=== PATIENT | female | born 1995 | race Caucasian/White ===

== ENCOUNTER 2021-04-24 19:34 | Outpatient (REF) | payer OTHER, MEDICAID, SELFPAY ==
--- NOTE | ~2021-04-24 | MR_ITS ---
MRI OF THE BRAIN WITHOUT IV CONTRAST INDICATION: Migraine headache. COMPARISON: CT head 02/25/2011. TECHNIQUE: Multiplanar multisequence MR imaging of the brain was obtained without IV contrast. FINDINGS: There is no hydrocephalus, extra-axial surface collection, or herniation. There is mild chronic microangiopathy. The major flow voids at the skull base are preserved. There is no acute infarct on diffusion-weighted imaging. There is no intracranial hemorrhage on the gradient recalled echo acquisition. The midline structures are normal. The cerebellar tonsils are normally positioned. The cerebellum and brainstem are normal. The craniocervical junction is normal. Osseous marrow signal intensity is homogenous. The visualized soft tissues are unremarkable. The right frontal sinus is completely opacified. There is mild mucosal thickening within the ethmoid air cells bilaterally. MR/MR head/brain wo con IMPRESSION: - No acute intracranial findings. - Mild chronic microangiopathy. - The right frontal sinus is completely opacified.
== END 2021-04-24 19:35 | disposition home or self-care (01) ==
LOC: HO.MRI 19:34
PROVIDERS: PCP Internal Medicine; Visit Provider Psychiatry & Neurology Neurology
DX: G43.909 Migraine, unspecified, not intractable, without status migrainosus (principal)
CPT/HCPCS: 70551

== ENCOUNTER 2023-01-14 11:52 | Outpatient (REF) | payer OTHER, SELFPAY ==
--- NOTE | ~2023-01-14 | XR_ITS ---
EXAMINATION: XR LUMBOSACRAL SPINE WITH OBLIQUES CLINICAL INFORMATION: Acute lower back pain with right sciatica. COMPARISON: None available. TECHNIQUE: AP, both oblique, and lateral views of the lumbar spine. Lateral view of the lumbosacral junction. FINDINGS: Vertebral body heights are normal. There is a slight thoracolumbar dextroscoliosis, which may be positional. At L5-S1, there is a 3 mm retrolisthesis. The remaining lumbar disc spaces are well-maintained. No acute fracture or spondylolisthesis is seen. There is multi-level minimal lumbar spondylosis. The posterior elements are intact. The paravertebral soft tissues are unremarkable. XR/XR lumbar spine 4V min IMPRESSION: 1. There is very mild degenerative disc disease at L5-S1. 2. There is multi-level minimal lumbar anterior spondylosis. 3. There is a slight thoracolumbar dextroscoliosis, which may be positional.
== END 2023-01-14 11:53 | disposition home or self-care (01) ==
LOC: HO.XRAY 11:52
PROVIDERS: PCP Internal Medicine; Visit Provider Internal Medicine
DX: M54.41 Lumbago with sciatica, right side (principal)
CPT/HCPCS: 72110

== ENCOUNTER 2023-05-13 14:18 | Emergency (ER) | payer OTHER, MEDICAID, SELFPAY ==
--- NOTE | ~2023-05-13 | XR_ITS ---
EXAMINATION: XR CHEST CLINICAL INFORMATION: Pleuritic chest pain. COMPARISON: Chest radiographs dated 09/15/2019. TECHNIQUE: 2 views of the chest were obtained. FINDINGS: No significant abnormality is noted involving the heart, lungs, mediastinum, bony thorax or soft tissues. XR/XR chest 2V IMPRESSION: No acute cardiopulmonary process.
--- NOTE | ~2023-05-13 | US_ITS ---
EXAMINATION: US VENOUS ULTRASOUND WITH DOPPLER LOWER EXTREMITY, RIGHT CLINICAL INFORMATION: Pain after long car trip. COMPARISON: None available. TECHNIQUE: Ultrasound of the deep veins is performed from the hip to the calf with compression sonography and color and pulse Doppler assessment. Spectral analysis with color-flow imaging is performed. FINDINGS: There is normal venous compression and respiratory variation and augmented flow. The visualized common femoral vein, superficial femoral vein, profunda femoral vein, popliteal vein, and the trifurcation region shows no evidence of deep venous thrombosis. No right popliteal cyst. The subcutaneous soft tissues are unremarkable. US/US venous duplex LE RT IMPRESSION: No evidence for deep venous thrombosis in the visualized veins of the right lower extremity.
--- NOTE | 2023-05-13 14:20 | ECG_ITS ---
Test Reason : chest pain Blood Pressure : / mmHG Vent. Rate : 068 BPM Atrial Rate : 068 BPM P-R Int : 186 ms QRS Dur : 094 ms QT Int : 414 ms P-R-T Axes : 027 041 -02 degrees QTc Int : 440 ms Normal sinus rhythm Normal ECG When compared with ECG of 15-SEP-2019 11:12, No significant change was found Referred By: Mariposa Gonzales Electronically Signed By:THERESA LUNDBERG
[2023-05-13 14:57] VITALS: BP 154/82; PULSE 66; RESP 20; TEMP 36.1; O2SAT 98; BMI 54.3
--- NOTE | 2023-05-13 14:58 | ED.CHESTPAIN ---
HPI - Chest Pain General Chief Complaint: General Medical Stated Complaint: CP when breathing/R calf pain Time Seen by Provider: 05/13/23 15:05 Source: patient Mode of arrival: ambulatory Limitations: no limitations History of Present Illness HPI narrative: This is a 28 y/o F with PMHx of HTN, migraines, osteoporosis and chronic back pain presents with chest pain since yesterday. She states that her chest pain began yesterday, is associated with SOB and worsens when she increases activity. She describes the pain as tightness with deep breaths. She is also symptomatic at rest. She also describes R calf pain that is nonradiating, 5/10 that started three days ago. She also reports an intermittent dry cough, headache and chills that started over the past day. Pt denies fevers, abdominal pain, dizziness, palpitations, N/V/D, or urinary symptoms. She denies any recent trauma, takes no exogenous estrogen and is a non-smoker. Patient reports a 3 hour car ride 2 days ago, but is otherwise relatively active. No other complaints at this time. MD complaint: chest discomfort Onset (ago): day(s) Timing of current episode: still present Prior episodes: No Onset: during rest and during exertion Pain radiation: none Severity: mild Pain scale (0-10): 5 Quality: tightness Relieving factors: nothing Exacerbating factors: movement Context: recent travel (3 hour car ride 2 days ago) Associated symptoms: dyspnea Treatment prior to arrival: none Risk Factors Coronary artery disease risk factors: hypertension Thoracic aortic dissection risk factors: none Pulmonary embolism risk factors: morbid obesity Related Data On Oral Contraceptives: No Allergies Allergy/AdvReac Type Severity Reaction Status Date / Time No Known Allergies Allergy Unverified 06/29/20 16:12 Review of Systems Review of Systems: Yes all other systems are reviewed and are negative Constitutional: Constitutional: Reports as per [facility] Past Medical History Attestation statement: The following information was validated with the patient. Social History Social History Smoked in Last 30 Days: No Advance Directives: No Advance Directives Information Provided: No Physical Exam Vital Signs: Vital Signs: Last Vital Signs Temp 96.9 F 05/13/23 14:57 Pulse 66 05/13/23 14:57 Resp 20 05/13/23 14:57 BP 154/82 H 05/13/23 14:57 Pulse Ox 98 05/13/23 14:57 O2 Del Method Room Air 05/13/23 14:57 BMI result Body Mass Index 54.3 Const: General: cooperative, comfortable and no acute distress Orientation/consciousness: patient oriented x3 Limitations: no limitations HEENT: Head: Yes normal to inspection, Yes normocephalic and Yes atraumatic Ears: hearing grossly normal bilaterally General nose exam: Normal external nose present Face and sinus: Yes normal facial exam Mouth: Normal oral and palatal mucosa present, oropharynx normal and moist mucous membranes Throat: Yes posterior oropharynx normal Eyes: General: appearance normal, both eyes and all related structures Eyelids: Yes eyelids normal Conjunctivae: conjunctivae normal Sclerae: sclerae normal Pupils: Equal, round and reactive pupils present EOM: EOMs intact bilaterally Neck: Neck: Yes normal visual inspection, Yes full ROM and Yes no lymphadenopathy Lymphatic: no lymphadenopathy noted Chest: Chest palpation & inspection: normal inspection of the chest and normal palpation of entire chest wall Resp: Effort & Inspection: normal respiratory effort and able to speak in complete sentences Auscultation: clear to auscultation bilaterally, no crackles, no rales, no rhonchi and no wheezes Cardio: Rate: regular rate Rhythm: regular rhythm Heart sounds: S1 normal heart sound present and S2 normal heart sound present GI: Inspection: Yes normal to inspection Skin: General skin exam: no rashes or lesions noted Trauma: no lacerations or abrasions Wounds: no wounds Neuro: General: patient oriented x3 and moves all extremities Cranial nerves: Yes Equal, round and reactive pupils present Extrem: Other: Right calf with mild TTP without any palpable cords. No overlying skin changes or warmth. Negative lizz's sign. General: Yes normal to inspection Right upper extremity: normal to inspection Left upper extremity: normal to inspection Right lower extremity: normal to inspection Left lower extremity: normal to inspection Course Course Course Narrative: RME - 28 y/o female with history of morbid obesity, history of asthma who presents to the ER from [facility] for evaluation of pleurtic chest pain that started yesterday. Recently got home from a vacation in [place] and was having right calf pain over the weekend. PERC negative. HR 60s and SPO2 98%. Plan: CXR, RLE Doppler (case d/w Dr. Cook who agrees w/ this workup) Reevaluation(s) Reevaluation #1: Chest xray unremarkable. Venous duplex negative for DVT, thompson's cyst. D-dimer was ordered and is negative. Symptoms have been ongoing for several days, therefore second troponin not warranted. EKG was NSR with no acute ischemic changes. Given negative workup, patient stable for discharge. Symptoms likely MSK related, will defer to PCP for further management and treatment. given return precautions for any new or worsening symptoms. Pt understands and agrees with plan. Patient stable for discharge. Medical Decision Making Medical Decision Making [facility] Narrative: 28 y/o F with PMHx of HTN, migraines, osteoporosis and chronic back pain presents with chest pain upon exertion. She states her symptom onset was 3 days ago, around the same time as a 3 hour car ride. Her chest pain is associated with SOB with exertion. Patient denies taking any estrogen, is a non-smoker and has no recent trauma. PE is on the differential but less likely given pt is PERC 0. therefore d-dimer ordered and CTA may be pending upon those results. Patient has a hx of HTN and is obese, therefore ACS is possible but unlikely due to age. EKG showed no acute ischemia, troponin ordered to rule out. Musculoskeletal origin is possible, but patient did not participate in physical activity recently and would not explain the shortness of breath. Differential Diagnosis Differential Diagnoses: The differential diagnosis associated with the presentation includes ACS - unlikely, PE, Costochondritis, atypical chest pain, DVT Admission/Observation Consideration of admission/observation: Escalation of care including admission/observation considered Patient would have been admitted to the hospital had her work up had any findings where hospital admission was appropriate and her clinical presentation warranted hospital admission. Lab Data [facility] Lab Attestation statement: I reviewed the patient's lab results. No leukocytosis, stable H&H, negative troponin, negative ddimer 05/13/23 17:01 05/13/23 17:01 Labs: Lab Results 05/13/23 05/13/23 05/13/23 Range/Units 16:56 16:56 17:01 WBC 6.3 (4.8-10.8) X10*3/uL RBC 4.09 L (4.20-5.50) X10*6/uL Hgb 12.2 (12.0-16.0) g/dl Hct 36.4 L (37.0-47.0) % MCV 89.0 (80.0-98.0) fL MCH 29.8 (27.0-33.0) pg MCHC 33.5 (31.0-35.0) g/dl RDW 12.6 (11.0-16.0) % Plt Count 239 (160-400) X10*3/uL MPV 10.4 (9.4-12.3) fL Immature Gran % (Auto) 0.3 (0.0-0.4) % Neut % (Auto) 52.3 (45-73) % Lymph % (Auto) 37.8 (20-40) % Haines % (Auto) 7.8 (2-11) % Eos % (Auto) 1.3 (0-4) % Baso % (Auto) 0.5 (0-2) % Lymph # (Auto) 2.4 (1.2-4.9) X10*3/uL Haines # (Auto) 0.5 (0.1-1.2) X10*3/uL Eos # (Auto) 0.1 (0.0-0.4) X10*3/uL Baso # (Auto) 0.0 (0.0-0.2) X10*3/uL Abs Immat Gran (auto) 0.02 (0.00-0.03) X10*3/uL Absolute Neuts (auto) 3.3 (2.0-8.3) x10*3/uL Absolute Nucleated RBC 0.000 (0.0-0.012) X10*3/uL Nucleated RBC % (auto) 0.0 (0.0-0.2) /100WBC Smear Tech's Comments VERIFIED PT (11.1-13.3) SEC INR (0.9-1.1) APTT (26.0-36.4) SEC D-Dimer High Sensitivty 171 NG/ML Sodium (135-145) mmol/L Potassium (3.3-5.1) mmol/L Chloride (96-108) mmol/L Carbon Dioxide (22-29) mmol/L Anion Gap (12-20) BUN (9-16) mg/dL Creatinine (0.5-1.4) mg/dL Estim Creat Clear Calc Estimated GFR Random Glucose (60-115) mg/dL Calcium (8.4-10.2) mg/dL Total Bilirubin (0.0-1.0) mg/dL Direct Bilirubin (0.0-0.5) mg/dL AST (5-31) U/L ALT (0-31) U/L Alkaline Phosphatase (39-117) U/L Troponin I High Sens < 2.7 (<3.5-17.0) ng/L Total Protein (6.5-8.0) g/dL Albumin (3.5-5.0) g/dL 05/13/23 05/13/23 05/13/23 Range/Units 17:01 17:01 17:01 WBC (4.8-10.8) X10*3/uL RBC (4.20-5.50) X10*6/uL Hgb (12.0-16.0) g/dl Hct (37.0-47.0) % MCV (80.0-98.0) fL MCH (27.0-33.0) pg MCHC (31.0-35.0) g/dl RDW (11.0-16.0) % Plt Count (160-400) X10*3/uL MPV (9.4-12.3) fL Immature Gran % (Auto) (0.0-0.4) % Neut % (Auto) (45-73) % Lymph % (Auto) (20-40) % Haines % (Auto) (2-11) % Eos % (Auto) (0-4) % Baso % (Auto) (0-2) % Lymph # (Auto) (1.2-4.9) X10*3/uL Haines # (Auto) (0.1-1.2) X10*3/uL Eos # (Auto) (0.0-0.4) X10*3/uL Baso # (Auto) (0.0-0.2) X10*3/uL Abs Immat Gran (auto) (0.00-0.03) X10*3/uL Absolute Neuts (auto) (2.0-8.3) x10*3/uL Absolute Nucleated RBC (0.0-0.012) X10*3/uL Nucleated RBC % (auto) (0.0-0.2) /100WBC Smear Tech's Comments PT 12.2 (11.1-13.3) SEC INR 1.0 (0.9-1.1) APTT 32.5 (26.0-36.4) SEC D-Dimer High Sensitivty NG/ML Sodium 140 (135-145) mmol/L Potassium 4.0 (3.3-5.1) mmol/L Chloride 110 H (96-108) mmol/L Carbon Dioxide 18 L (22-29) mmol/L Anion Gap 16 (12-20) BUN 11 (9-16) mg/dL Creatinine 0.73 (0.5-1.4) mg/dL Estim Creat Clear Calc 166.0 Estimated GFR > 60 Random Glucose 86 (60-115) mg/dL Calcium 9.3 (8.4-10.2) mg/dL Total Bilirubin 0.3 (0.0-1.0) mg/dL Direct Bilirubin 0.1 (0.0-0.5) mg/dL AST 32 H (5-31) U/L ALT 34 H (0-31) U/L Alkaline Phosphatase 64 (39-117) U/L Troponin I High Sens (<3.5-17.0) ng/L Total Protein 7.4 (6.5-8.0) g/dL Albumin 4.0 (3.5-5.0) g/dL Independent Interpretation I performed an independent interpretation of an: EKG Interpretation: NSR at at ventricular rate of 68 BPM, MI interval 186, QTC 440, no st elevation or depression. Radiology Impression Discussion of test interpretation with radiology: I have reviewed the radiologist's reading. Radiologist Impression: EXAMINATION: XR CHEST CLINICAL INFORMATION: Pleuritic chest pain. COMPARISON: Chest radiographs dated 09/15/2019. TECHNIQUE: 2 views of the chest were obtained. FINDINGS: No significant abnormality is noted involving the heart, lungs, mediastinum, bony thorax or soft tissues. XR/XR chest 2V IMPRESSION: No acute cardiopulmonary process. Dictated By: Brandon Doyle MD Discharge Plan Discharge Clinical Impression: Atypical chest pain Patient Disposition: Home, Self-Care Instructions: Chest Pain (ED) Additional Instructions: Your blood work, EKG, and chest x-ray were reassuring today. Your ultrasound did not show any blood clots. It is unclear what is causing you to have this chest pain. Please follow-up with your primary care physician regarding this visit. You may take Tylenol ibuprofen as needed for your pain. if any new or worsening symptoms occur including but not limited to worsening chest pain, shortness of breath, weakness, numbness or tingling, please return for evaluation. Interventions: ED Discharge Assessment Last Done: 05/13/23 18:27 Discharge Date/Time: 05/13/23 18:27
--- NOTE | 2023-05-13 17:02 | MHC.EDTECH ---
Labs collected and sent to lab
[2023-05-13 17:10] LABS: D Dimer High Sensitivity 171 NG/ML
[2023-05-13 17:18] LABS: Prothrombin Time 12.2 SEC (11.1-13.3)
[2023-05-13 17:20] LABS: Basophils Percent Auto 0.5 % (0-2); Eosinophils Absolute Auto 0.1 X10*3/uL (0.0-0.4); Eosinophils Percent Auto 1.3 % (0-4); Hematocrit 36.4 % (37.0-47.0); Hemoglobin 12.2 g/dl (12.0-16.0); Imm Gran Abs Auto 0.02 X10*3/uL (0.00-0.03); Imm Gran Pct Auto 0.3 % (0.0-0.4); Lymphocytes Absolute Auto 2.4 X10*3/uL (1.2-4.9); Lymphocytes Percent Auto 37.8 % (20-40); MANUAL DIFF FLAG SCAN; Mean Corpuscular HGB Conc 33.5 g/dl (31.0-35.0); Mean Corpuscular Hemoglobin 29.8 pg (27.0-33.0); Mean Platelet Volume 10.4 fL (9.4-12.3); Monocytes Absolute Auto 0.5 X10*3/uL (0.1-1.2); Monocytes Percent Auto 7.8 % (2-11); Neutrophils Absolute Auto 3.3 x10*3/uL (2.0-8.3); Neutrophils Percent Auto 52.3 % (45-73); PLT CLUMP 1; Red Blood Count 4.09 X10*6/uL (4.20-5.50); Red Cell Distribution Width 12.6 % (11.0-16.0); SCAN SMEAR FLAG 1
[2023-05-13 17:21] LABS: Partial Thromboplastin Time 32.5 SEC (26.0-36.4)
[2023-05-13 17:26] LABS: Alanine Aminotransferase 34 U/L (0-31); Alkaline Phosphatase 64 U/L (39-117); Anion Gap 16 (12-20); Aspartate Amino Transferase 32 U/L (5-31); Bilirubin Direct 0.1 mg/dL (0.0-0.5); Bilirubin Total 0.3 mg/dL (0.0-1.0); Blood Urea Nitrogen 11 mg/dL (9-16); Calcium 9.3 mg/dL (8.4-10.2); Carbon Dioxide 18 mmol/L (22-29); Chloride 110 mmol/L (96-108); Estimated Glomerular Filt Rate > 60; Glucose Random 86 mg/dL (60-115); Sodium 140 mmol/L (135-145); Total Protein 7.4 g/dL (6.5-8.0)
[2023-05-13 17:26] LABS: Troponin-I High Sensitivity < 2.7 ng/L (<3.5-17.0)
[2023-05-13 17:30] LABS: White Blood Count 6.3 X10*3/uL (4.8-10.8)
[2023-05-13 17:31] LABS: Platelet Count 239 X10*3/uL (160-400); SLIDE REVIEW VERIFIED
== END 2023-05-13 18:27 | disposition home or self-care (01) ==
PROVIDERS: Physician Assistant Medical; Emergency Provider Emergency Medicine; PCP Internal Medicine
DX: R07.89 Other chest pain (principal); R06.02 Shortness of breath; M79.661 Pain in right lower leg; E66.01 Morbid (severe) obesity due to excess calories; Z68.43 Body mass index [BMI] 50.0-59.9, adult
CPT/HCPCS: 36415; 71046; 80048; 80076; 84484; 85025; 85379; 85610; 85730; 93005; 93971; 99283

== ENCOUNTER → 2023-05-13 14:20 | Outpatient (BNV) | payer OTHER, MEDICAID, SELFPAY | PROVIDERS: Emergency Provider Emergency Medicine; PCP Internal Medicine; Visit Provider Internal Medicine | DX: R07.9 Chest pain, unspecified (principal) | CPT/HCPCS: 93010 ==

== ENCOUNTER 2023-09-16 14:04 | Outpatient (REF) | payer OTHER, SELFPAY ==
[2023-09-16 15:11] LABS: Influenza A PCR NEGATIVE (Negative); Influenza B PCR NEGATIVE (Negative); Resp Syncy Virus RNA Qual PCR NEGATIVE (Negative); SARS COV2 PCR INHOUSE NEGATIVE (Negative)
== END 2023-09-16 14:05 | disposition home or self-care (01) ==
LOC: HO.HHCLNP 14:04
PROVIDERS: Visit Provider Emergency Medicine
DX: Z11.52 Encounter for screening for COVID-19 (principal); J06.9 Acute upper respiratory infection, unspecified
CPT/HCPCS: 0241U; 87070

== ENCOUNTER 2023-12-29 08:53 | Outpatient (REF) | payer OTHER, SELFPAY ==
[2023-12-29 11:44] LABS: Cholesterol 150 mg/dL (<200); HDL Cholesterol 42 mg/dL (>40); LDL Cholesterol Calculated 97 mg/dL (<100); Triglycerides 59 mg/dL (<150)
[2023-12-29 12:05] LABS: TSH reflex Free T4 1.18 uIU/mL (0.32-4.0); Vitamin D 25-OH Total 39.7 ng/mL (>30)
[2023-12-29 12:42] LABS: Reflex LDLD? No
== END 2023-12-29 08:54 | disposition home or self-care (01) ==
LOC: HO.HHCL 08:53
PROVIDERS: Visit Provider Internal Medicine
DX: E55.9 Vitamin D deficiency, unspecified (principal); F33.41 Major depressive disorder, recurrent, in partial remission; E66.01 Morbid (severe) obesity due to excess calories; Z68.43 Body mass index [BMI] 50.0-59.9, adult
CPT/HCPCS: 36415; 80061; 82306; 84443

== ENCOUNTER 2023-12-31 09:59 | Outpatient (REF) | payer OTHER, SELFPAY ==
[2023-12-31 12:34] LABS: Folate 11.8 ng/mL (> or = 4.0); Vitamin B12 380 pg/mL (200-900)
== END 2023-12-31 10:00 | disposition home or self-care (01) ==
LOC: HO.HHCL 09:59
PROVIDERS: Visit Provider Internal Medicine
DX: Z00.00 Encounter for general adult medical examination without abnormal findings (principal)
CPT/HCPCS: 36415; 82607; 82746

== ENCOUNTER 2024-05-20 15:44 | Outpatient (REF) | payer OTHER, SELFPAY ==
--- NOTE | ~2024-05-20 | XR_ITS ---
EXAMINATION: XR KNEE, LEFT CLINICAL INFORMATION: Left knee pain, softball injury COMPARISON: None available. TECHNIQUE: Four views of the left knee. FINDINGS: No fracture, dislocation or bone lesion is evident. There may be a small suprapatellar effusion. No erosive, proliferative or degenerative changes are detected. XR/XR knee LT 4V IMPRESSION: Question small suprapatellar effusion.
== END 2024-05-20 15:45 | disposition home or self-care (01) ==
LOC: HO.HHCX 15:44
PROVIDERS: Visit Provider Nurse Practitioner
DX: M25.562 Pain in left knee (principal)
CPT/HCPCS: 73564

== ENCOUNTER 2024-08-30 08:44 | Outpatient (RCR) | payer OTHER, SELFPAY ==
--- NOTE | 2024-07-08 15:56 | MHC.PT.PR ---
[facility] [place] Office [place] Office [place] Office [address] Adria Carlson [address] [phone] F: [phone] F: [phone] F: [phone] F: [phone] Physical Therapy Progress Note Diagnosis: LOW BACK PAIN (KP) Date of Surgery: NA Date of Evaluation: 07/06/24 Treatments to Date: Cancellations to Date: No Shows to Date: Subjective: Pain Score and Location: 4-5 Objective Measures: Assessment: PT Plan: Frequency and Duration: The patient will be seen 2 X WEEK FOR 5 WEEKS Treatment Plan: Therapeutic Exercise Dynamic Therapeutic Activities Neuromuscular Re-ed Manual Therapies Joint Mobilization Taping Gait Home Exercise Program Patient Education Electrical Stimulation Ultrasound Hot or Cold Pack Reviewed/ Agreed with Student Documentation: Therapist: Thank you once again for your referral.
--- NOTE | 2024-10-08 07:17 | MHC.PT.DC ---
[facility] [place] Office [place] Office [place] Office [address] Adria Carlson [address] [phone] F: [phone] F: [phone] F: [phone] F: [phone] Physical Therapy Discharge Report Diagnosis: LOW BACK PAIN (KP) Date of Surgery: NA Date of Evaluation: 07/06/24 Date of Discharge: 10/08/24 Treatments to Date: 13 Cancellations to Date: 0 No Shows to Date: 0 Discharge Status: Patient Elected to Stop Discharge Summary: At last attended visit, assessment states Pt with increased point tender tissue tension on R side, some ease with STM/TPR and given tennis ball to use for self TPR. Improved postural control throughout all exercises. Encouraged to talk to personal care aide regarding [place] compensation and stretching prior to workouts. A formal reassessment was not performed as pt had to cancel last visit due to unrelated issue. As we have not seen her in clinic for greater than 30 days we will close current chart and perform new evaluation if further PT is indicated. Electronically signed by: Shanel De Leon PT DPT Please sign and return to therapist. Thank you for your referral.
== END 2024-10-08 07:17 | disposition home or self-care (01) ==
LOC: HO.PT 08:44
PROVIDERS: PCP Internal Medicine; Visit Provider Internal Medicine
DX: M54.50 Low back pain, unspecified (principal); G89.29 Other chronic pain
CPT/HCPCS: 97110; 97140; 97161; 97530

== ENCOUNTER 2025-08-25 09:12 | Outpatient (AMB) | payer OTHER, SELFPAY ==
--- NOTE | 2025-08-25 09:14 | A.OFFVIS_ITS ---
Intake Visit Reasons: 6 m migraine Allergies No Known Allergies Allergy (Verified 08/25/25 09:17) Medication List - Last Reconciled 08/25/25 by Nelda Coronado CNP amitriptyline 37.5 mg PO BEDTIME diclofenac sodium 1% topical ibuprofen 400 mg PO Q6H lisinopril 20 mg PO DAILY venlafaxine ER 75 mg PO DAILY verapamil 40 mg PO BID 90 days HPI Comments Details: 30-year-old woman with obesity and headaches. She was doing okay. She was having some more pressure to front of head over the last few weeks. Headaches were generally well-controlled with amitriptyline and verapamil, happening about 1x/week. She was using Tylenol or ibuprofen as needed which seemed to help. Sleep was okay. Stress was still there. [facility] Medical History (Updated 08/25/25 @ 09:16 by Nelda Coronado CNP) Hypertension Migraine Review of Systems Const Denies chills, Denies daytime sleepiness, Denies difficulty sleeping, Reports fatigue, Denies fever(s), Denies frequent falls, Reports headache(s), Denies increased appetite, Denies poor appetite, Denies snoring, Denies weakness, Denies weight gain and Denies weight loss Eyes Denies loss of vision ENT Denies vertigo, Denies dizziness and Reports headache(s) Card Denies chest pain at rest, Denies chest pain with activity, Denies syncope, Denies leg edema and Denies palpitations Resp Denies snoring GI Denies constipation, Denies heartburn, Denies diarrhea and Denies nausea Denies urinary frequency, Denies urinary incontinence and Denies urinary urgency Musc Denies abnormal gait, Denies numbness and Denies tingling Skin/Breast Denies dry skin and Denies rash Neuro Denies abnormal gait, Denies vertigo, Denies dizziness, Denies syncope, Denies frequent falls, Reports headache(s), Denies lack of coordination, Denies loss of vision, Denies memory loss, Denies numbness, Denies restless legs, Denies seizure-like activity, Denies tingling, Denies paresthesias, Denies tremor(s) and Denies weakness Psych Denies anxiety, Denies depression, Denies auditory hallucinations, Denies memory loss, Denies visual hallucinations and Denies suicidal ideation Endo Reports fatigue and Denies palpitations Physical Exam Const Other: General Appearance:? normal, in no acute distress. Skin:? no rashes, no significant birthmarks. Heart:? S1, S2 normal, no murmurs. Lungs:? clear anteriorly and posteriorly. Extremities:? no edema. Psych:? alert, oriented, cognitive function intact, cooperative with exam. Neuro Other: Mental Status:?Normal attention, orientation, memory and affect.? Cranial Nerves:?Pupils are equal, round and reactive to light. External occular muscles are intact. Visual lemus are full. Face is symmetrical. Facial sensations are normal. Tongue is midline. Palate elevates symmetrically. Shoulder shrugging is normal. Hearing to bedside conversation is normal. Fundoscopy: WNL Sensory Exam:?....? Coordination:?No ataxia,?no titubation.? Gait Exam: Within normal limits. Cerebellar Signs:?[id number] is okay. Extrapyramidal System:?No tremor, rigidity with normal facial expressions.? Pronator Drift:?Not present.? Involuntary Movements:?No tremors seen.? Speech:?Normal.? Results Reviewed Results Reviewed: MRI brain WO at [facility] [place] 04[place]2021: minimal MVD Assessment & Plan Assessment & Plan (1) Migraine: Code(s): G43.909 - Migraine, unspecified, not intractable, without status migrainosus Category: Medical Qualifiers: Migraine type: unspecified Status migrainosus presence: without status migrainosus Intractability: not intractable Qualified Code(s): G43.909 - Migraine, unspecified, not intractable, without status migrainosus Plan: Continue amitriptyline 25mg 1.5 tablets at bedtime. Continue verapamil 40mg 1 tablet twice a day. She was advised to limit use of Tylenol and/or ibuprofen (or other OTC analgesics) to no more than 2-3x/week. Follow up in 6 months or sooner as needed. Plan Meds tried: topiramate, propranolol, amitriptyline, verapamil Medications: New amitriptyline 37.5 mg (1.5 x 25 mg) PO BEDTIME 135 tabs 1RF 90 days Refilled verapamil 40 mg PO BID 180 tabs 1RF 90 days Coding Level of Care Code Est Pt Level 4 (71706) Diagnoses Migraine without status migrainosus, not intractable, unspecified migraine type G43.909 Migraine type: unspecified Status migrainosus presence: without status migrainosus Intractability: not intractable
--- OUTSIDE RECORDS SUMMARY | 2025-08-25 10:22 | XMS_ITS | Encounter Summary ---
Author Organization [employer] Address [address] [place] [address] Care Team Providers Care Farm Management Agent Name Role Phone Joy Gonzalez MD Primary Care Provider + Reason for Visit * Reason Comments Med Refill Encounter Details Date Type Department Care Team (Late st Contact Info) Description 12/23/2022 Refill [facility] [address] [place] [address] [phone] Joy Gonzalez MD [address] [place], [place] [phone] Vitamin D deficiency Social History Tobacco Use Types Packs/Day Years Used Date Smoking Tobacco: Never Smokeless Tobacco: Never Alcohol Use Standard Drinks/Week Comments Yes 0 (1 standard drink = 0.6 oz pur e alcohol) ocaccionally Depression Answer Date Recorded Patient Health Questionnaire-2 Score 0 10/16/2022 Comments Unknown Sex and Gender Information Value Date Recorded Sex Assigned at Female 08/12/2022 10:19 AM EDT Legal Sex Female 10:19 AM EDT Gender Identity Female 08/12/2022 10:19 AM EDT Sexual Orientation Choose not to disclose 2022 2:48 PM EDT Sexual Orientation Straight 01/13/2023 2: 48 PM EDT documented as of this encounter Plan of Treatment Upcoming Encounters Date Type Department Care Team (Late st Contact Info) Description 09/26/2025 9:45 AM EST Office Visit [facility] [address] [place] [address] [phone] Joy Gonzalez MD [address] [place] [address] documented as of this encounter Visit Diagnoses Diagnosis Vitamin D deficiency documented in this encounter Care Teams Farm Management Agent Relationship Specialty Start Date End Date Joy Gonzalez MD [address] [place] [id number] PCP - General Family Medicine 07/26/16 documented as of this encounter
--- OUTSIDE RECORDS SUMMARY | 2025-08-25 10:22 | XMS_ITS | Clinical Summary ---
Author Organization [facility] Address [address] [place] [phone] Phone Care Team Providers Care Dry Cell Sealer Name Role Phone Unavailable Primary Care Provider Unavailabl e Immunizations Immunization Administration Dates Next Due DTP 10/10/1997, 5,1993,1992,1993 Hep B, ped/adol 1993,1993,1993 Hib (PRP-T) 08/13/1995, 3,1993,1992 MMR 10/10/1997,08/13/1995 OPV 10/10/1997, 5,1993,1992 Td (adult) (MBL), 2 Lf tetan us toxoid, PF, adsorbed 04/03/2005 Family History Relation Name Status Comments Father Alive Father: Alive a nd well Half-Brother Alive Half brother (P ): Alive and well Half-Sister Alive Half sister (P) : Alive and well Mother Alive Mother: Alive a nd well Social History Tobacco Use Types Packs/Day Years Used Date Smoking Tobacco: Never Assessed Comments Unknown Sex and Gender Information Value Date Recorded Sex Assigned at Not on file Legal Sex Female 4:11 PM EDT Gender Identity Not on file Sexual Orientation Not on file Plan of Treatment Health Maintenance Due Date Last Done Comments DTaP,Tdap,and Td Vaccines (6 - Tdap) 04/04/2005 04/03/2005, 10/10/1997, 08/13/1995, Additional history exists Varicella Vaccines (1 of 2 - 13+ 2-dose series) 2006 HPV Vaccines (1 - 3-dose SCDM series) 01/10/2020 Influenza Vaccines (#1) 2025 COVID-19 Vaccine (2024- season) 2025 Hepatitis B Vaccines Completed 1993, 1993, 1993 HIB Vaccines Completed 08/13/1995, 09/14, 1993, Additional history exists IPV Vaccines Completed 10/10/1997, 10/1994, 1993, Additional history exists MMR Vaccines Completed 10/10/1997, 08/13/1995 Hepatitis A Vaccines Aged Out No long er eligible based on patient's age to complete this topic Men B Vaccine Aged Out No longer elig ible based on patient's age to complete this topic Meningococcal Vaccine Aged Out No levon karely eligible based on patient's age to complete this topic Pneumococcal Vaccine Aged Out No long er eligible based on patient's age to complete this topic
--- OUTSIDE RECORDS SUMMARY | 2025-08-25 10:22 | XMS_ITS | Encounter Summary ---
Author Organization [employer] Address [address] [facility] [address] [place] [address] Care Team Providers Care Healthcare Facility Administrator Name Role Phone Joy Gonzalez MD Primary Care Provider + Reason for Visit * Reason Comments Med Refill Encounter Details Date Type Department Care Team (Late st Contact Info) Description 06/17/2023 Refill [facility] MEDICINE [address] [place] [address] Joy Gonzalez MD [address], [place] [phone] Acute bilateral low back pain with right-sided sciatica Social History Tobacco Use Types Packs/Day Years Used Date Smoking Tobacco: Never Passive Smoke Exposure: Never Smokeless Tobacco: Never Alcohol Use Standard Drinks/Week Comments Not Currently 0 (1 standard drink = 0.6 oz [...] 2:48 PM EDT Sexual Orientation Straight 01/13/2023 2 :48 PM EDT documented as of this encounter Plan of Treatment Upcoming Encounters Date Type Department Care Team (Late st Contact Info) Description 09/26/2025 9:45 AM EST Office Visit [facility] MEDICINE [address] [place], [place] [phone] Joy Gonzalez MD [address] [place] [address] documented as of this encounter Visit Diagnoses Diagnosis Acute bilateral low back pain with right-sided sciatica documented in this encounter Care Teams Healthcare Facility Administrator Relationship Specialty Start Date End Date Joy Gonzalez MD [address] [place] [address] PCP - General Family Medicine 07/26/16 documented as of this encounter
--- OUTSIDE RECORDS SUMMARY | 2025-08-25 10:22 | XMS_ITS | Encounter Summary ---
Author Organization [facility] Address [address] [place] [address] Phone Care Team Providers Care Tour Guide Name Role Phone Vandana Ying MD Primary Care Provider [phone] Encounter Details Date Type Department Care Team (Late st Contact Info) Description 05/29/2017 Conversion Encounter [facility] [place] [address] [place] [address] Social History Tobacco Use Types Packs/Day Years Used Date Smoking Tobacco: Never Assessed Comments Unknown Sex and Gender Information Value Date Recorded Sex Assigned at Not on file Legal Sex Female 4:11 PM EDT Gender Identity Not on file Sexual Orientation Not on file documented as of this encounter Plan of Treatment Not on file documented as of this encounter Visit Diagnoses Not on filedocumented in this encounter Care Teams Tour Guide Relationship Specialty Start Date End Date Vandana Ying MD [address] [place] [address] PCP - General 05/23/17 04/09/23 documented as of this encounter
--- OUTSIDE RECORDS SUMMARY | 2025-08-25 10:22 | XMS_ITS | Encounter Summary ---
Author Organization [employer] Address [address] [facility] [address] [place] [address] Care Team Providers Care Cutter Banana Room Name Role Phone Joy Gonzalez MD Primary Care Provider + Encounter Details Date Type Department Care Team (Late Contact Info) Description 01/20/2023 Orders Only [facility] MEDICINE [address] [place], [place] [phone] Joy Gonzalez MD [address] [place] [address] Social History Tobacco Use Types Packs/Day Years [...] Orientation Straight 01/13/2023 2: 48 PM EDT COVID-19 Exposure Response Date Recorded In the last 10 days, have yo u been in contact with someone who was confirmed or suspected to have Coronavirus/COVID-19? No / Unsure 01/13/2023 2:58 PM EDT documented as of this encounter Plan of Treatment Upcoming Encounters Date Type Department Care Team (Late Contact Info) Description 09/26/2025 9:45 AM EST Office Visit [facility] MEDICINE [address] [place] [address] Joy Gonzalez MD [address] [place] [address] documented as of this encounter Visit Diagnoses Not on filedocumented in this encounter Care Teams Cutter Banana Room Relationship Specialty Start Date End Date Joy Gonzalez MD [address] [place] [address] PCP - General Family Medicine 07/26/16 documented as of this encounter
--- OUTSIDE RECORDS SUMMARY | 2025-08-25 10:22 | XMS_ITS | Encounter Summary ---
Author Organization [employer] Address [address] [facility] 7[address] [place] [address] Care Team Providers Care Forensic Identification Specialist Name Role Phone Joy Gonzalez MD Primary Care Provider + Reason for Visit * Reason Comments Med Change Request Encounter Details Date Type Department Care Team ([facility] Contact Info) Description 11/21/2023 Refill [facility] MEDICINE [address] [place], [place] [phone] Joy Gonzalez MD [address] [place], [place] [phone] Recurrent major depression in partial remission (CMS/HCC) Social History Tobacco Use Types Packs/Day Years Used Date Smoking Tobacco: Never Passive Smoke Exposure: Never Smokeless Tobacco: Never Alcohol Use Standard Drinks/Week Comments Not Currently 0 (1 standard drink = 0.6 oz pur e alcohol) ocaccionally Depression Answer Date Recorded Patient Health Questionnaire-9 Score 2 10/29/2023 Patient Health Questionnaire-9 Score 2 10/29/2023 Last PHQ-9: Questionnaire Data Not on file 0 10/29/2023 Housing Stability Answer Date Recorded What is your housing situation today? I have ruben ingram 10/29/[address] you li ve. Do you have problems with any of the following? None of the above 10/29/2023 Food Insecurity Answer Date Recorded Within the past 12 months, y ou worried that your food would run out before you got money to buy more: Never True 10/29/2023 Within the past 12 months,th e food you bought just didn't last and you didn't have enough money to get more: Never True Transportation Answer Date Recorded In the past 12 months, has l ack of transportation kept you from medical appts, meetings, work or from getting things needed for daily living? No 10/29/2023 Utilities Answer Date Recorded In the past 12 months, has t he electric, gas, oil or water company threatened to shut off services in your home? No 10/29/2023 Depression Answer Date Recorded Patient Health Questionnaire-2 Score 2 10/29/2023 Comments Unknown Sex and Gender Information Value [...] Description 09/26/2025 9:45 AM EST Office Visit [facility] MEDICINE [address] [place] [address] Joy Gonzalez MD [address] [place] [address] documented as of this encounter Visit Diagnoses Diagnosis Recurrent major depression in partial remission (CMS/HCC) Major depressive disorder, recurrent episode, in partial or unspecified remission documented in this encounter Additional Health Concerns Assessment Noted Time PHQ-9 Depression Total Score: 2 10/29/19 24 9:07 AM EST documented as of this encounter Care Teams Forensic Identification Specialist Relationship Specialty Start Date End Date Joy Gonzalez MD [address] [place] [address] PCP - General Family Medicine 07/26/16 documented as of this encounter
--- OUTSIDE RECORDS SUMMARY | 2025-08-25 10:22 | XMS_ITS | Encounter Summary ---
Author Organization [email or web address] Address [address] [facility] [address]t [place] [address] Care Team Providers Care Flight/Transport Nurse Name Role Phone Joy Gonzalez MD Primary Care Provider + Reason for Visit * Reason Comments Med Refill Encounter Details Date Type Department Care Team ([facility] st Contact Info) Description 12/24/2023 Refill [facility] MEDICINE [address] [place], [place] [phone] Joy Gonzalez MD [address] [place], [place] [phone] Recurrent major depression in partial remission (CMS/HCC) [...] Description 09/26/2025 9:45 AM EST Office Visit [facility] MEDICINE [address] [place] [address] Joy Gonzalez MD [address] [place] [address] documented as of this encounter Visit Diagnoses Diagnosis Recurrent major depression in partial remission (CMS/HCC) Major depressive disorder, recurrent episode, in partial or unspecified remission documented in this encounter Additional Health Concerns Assessment Noted Time PHQ-9 Depression Total Score: 2 10/29/19 24 9:07 AM EST documented as of this encounter Care Teams Flight/Transport Nurse Relationship Specialty Start Date End Date Joy Gonzalez MD [address] [place] [address] PCP - General Family Medicine 07/26/16 documented as of this encounter
--- OUTSIDE RECORDS SUMMARY | 2025-08-25 10:22 | XMS_ITS | Encounter Summary ---
Author Organization [employer] Address [address] [facility] [address]t [place] [address] Care Team Providers Care Shoe Lay Out Planner Name Role Phone Joy Gonzalez MD Primary Care Provider + Reason for Visit * Reason Comments Med Change Request Encounter Details Date Type Department Care Team ([facility] Contact Info) Description 07/26/2023 Refill [facility] MEDICINE [address] [place] [address] Joy Gonzalez MD [address] [place] [address] Acute bilateral low back pain with right-sided sciatica Social History Tobacco Use Types Packs/Day Years Used Date Smoking Tobacco: Never Passive Smoke Exposure: Never Smokeless Tobacco: Never Alcohol Use Standard Drinks/Week Comments Not Currently 0 (1 standard drink = 0.6 oz pur e alcohol) ocaccionally Housing Stability Answer Date Recorded What is your housing situation today? I have ruben ingram 07/28/[address] you li ve. Do you have problems with any of the following? None of the above 07/28/2023 Food Insecurity Answer Date Recorded Within the past 12 months, y ou worried that your food would run out before you got money to buy more: Never True 07/28/2023 Within the past 12 months,th e food you bought just didn't last and you didn't have enough money to get more: Never True Transportation Answer Date Recorded In the past 12 months, has l ack of transportation kept you from medical appts, meetings, work or from getting things needed for daily living? No 07/28/2023 Utilities Answer Date Recorded In the past 12 months, has t he electric, gas, oil or water company threatened to shut off services in your home? No 07/28/2023 Depression Answer Date Recorded Patient Health Questionnaire-2 [...] Description 09/26/2025 9:45 AM EST Office Visit [facility] MEDICINE [address] [place] [phone] Joy Gonzalez MD [address] [place] [phone] documented as of this encounter Visit Diagnoses Diagnosis Acute bilateral low back pain with right-sided sciatica documented in this encounter Care Teams Shoe Lay Out Planner Relationship Specialty Start Date End Date Joy Gonzalez MD [address] [place] [phone] PCP - General Family Medicine 07/26/16 documented as of this encounter
--- OUTSIDE RECORDS SUMMARY | 2025-08-25 10:22 | XMS_ITS | Clinical Summary ---
Author Organization [employer] Address [address] [facility] 7[address] [place] [address] Care Team Providers Care Marketing Strategy Manager Name Role Phone Joy Gonzalez MD Primary Care Provider + Allergies Active Allergy Reactions Criticality Noted Date Comments Cat Dander 09/14/2022 Medications * This document contains information received from the source organization and may not represent a complete record from that organization. albuterol (ProAir HFA) 108 (90 Base) MCG/ACT inhaler Inhale 2 puffs every 4 (four) hours if needed. 1 Active omeprazole (PriLOSEC) [address] capsule Take 1 capsule by mouth at bed time. 2 Active fluticasone (Flonase) 50 MCG/ACT nasal sprayIndications :Allergic rhinitis, unspecified seasonality, unspecified trigger Administer 1 spray into each nostril in the morning. 16 g 1 3 Active cyanocobalamin (Vitamin B-12) 1000 MCG tablet TAKE 1 TABLET BY MOUTH EVERY DAY 90 tablet 3 3 Active amitriptyline (Elavil) 10 MG tabletIndication s:Migraine Take 25 mg by mouth at bedtime. 3 Active SUMAtriptan (Imitrex) 50 MG tablet 3 Active tiZANidine (Zanaflex) 4 MG tabletIndication s:Acute bilateral low back pain with right-sided sciatica TAKE 1 TABLET BY MOUTH TWICE DAILY NEEDED FOR MUSCLE SPASMS 60 tablet 3 Active betamethasone valerate (Valisone) 0.1 % creamIndications :Acute solar dermatitis APPLY TOPICALLY IF NEEDED IN THE MORNING AND AT BEDTIME (DRYNESS). 45 g 2 3 Active fluticasone furoate (Arnuity Ellipta) 200 MCG/ACT inhaler Inhale 1 puff Once per day. Rinse mouth with water after use to reduce aftertaste and incidence of candidiasis. Do not swallow. 1 each 11 4 09/06/20 Active venlafaxine XR (Effexor XR) 75 MG 24 hr capsuleIndicatio ns:Recurrent major depression in partial remission (CMS/HCC) TAKE 1 CAPSULE BY MOUTH EVERY MORNING. DO NOT CRUSH OR CHEW. 30 capsule 11 5 Active verapamil (Calan) 40 MG tablet Take 1 tablet by mouth 2 times daily. 5 Active ibuprofen 400 MG tabletIndication s:Acute bilateral low back pain with right-sided sciatica TAKE 1 TABLET (400 MG) BY MOUTH EVERY 6 (SIX) HOURS. 120 tablet 11 5 Active lisinopril 20 MG tablet TAKE 1 TABLET BY MOUTH EVERY DAY 90 tablet 5 Active Active Problems Problem Noted Date Diagnosed Date Moderate major depression (CMS/HCC) 01/19/2025 Acute pain of left knee 05/20/2024 Assessment & Plan (05/20/2024 4:14 PM EDT): -likely patellofemoral pain -avoid intense physical activity for at least 2 weeks, ice/heat as preferred -take naproxen 500 mg two times daily as needed pain with food. Advised to avoid ibuprofen while using this med -may use tylenol and diclofenac topical gel for additional pain relief -X-ray ordered. Will call with results -consider PT with persistent pain -follow-up approx 6 week or sooner if pain persists or worsens Acute exacerbation of chronic low back pain 12/12 Assessment & Plan (05/05/2024 9:27 AM EDT): - partially improved with exercises and Tylenol - agreed to got to PT - advised to come to acupuncture clinic Assessment & Plan (01/02/2024 9:26 AM EDT): Recommended to continue stretching exercises and discuses with physical therapist about strengthening exercises for her lower back Take tylenol prn and reconsult prn if PT referral is needed Fibroma of upper extremity 10/29/2023 Assessment & Plan (10/29/2023 8:18 PM EST): Healing fibrotic scar on right axilla, no infection at this time. Reassurance that it doesn't need to be resected Unless it becomes recurrent. Has other Non fibrotic scars around it, apparently from previous hydradenitis? Folliculitis. No active lesions. She agreed with POC, will re consult prn. Acute bilateral low back pain with right-sided s ciatica 01/14/2023 Assessment & Plan (01/14/2023 12:17 PM EDT): Counseled to use ibuprofen 400 MG to 800 TID with meals + tizanidine once or twice per day for one week I gave her ifnromation for stretching exercsie of the lower spine If symptoms do not resovle in 3-4 weeks, she will call for PT referral. Allergic conjunctivitis of both eyes 10/16/2022 Assessment & Plan (06/19/2023 4:19 PM EDT): Use ketotifen eye drops + cetirizine if needed Assessment & Plan (10/16/2022 1:21 PM EST): Use ketotifen eye drops prn Asthenia 09/14/2022 Benign hypertension 09/14/2022 Assessment & Plan (01/02/2024 9:25 AM EDT): Controlled. Compliant w/meds Continue lisinopril 10mg Counseled re low salt diet/increase moderate physical activity. Check home BP BIW and prn CP/KRISHNA/HATHAWAY Non smoking patient. 4 month fu Recommended to get Covid and TD boosters but she declined Assessment & Plan (06/19/2023 4:17 PM EDT): Controlled, repeated one is 130/82. I congratulated her for life style modifications and encouraged her to continue with it. Continue lisinopril only. FU In 4-5m Assessment & Plan (05/21/2023 9:51 AM EDT): Uncontrolled. Counseled re low salt diet/increase moderate physical activity. Check home BP BIW and prn CP/KRISHNA/HATHAWAY Non smoking patient. I will add low dose verapamil which will help mostly with migraine prophylaxis. Continue lisinopril 20mg and fu with me in 2-3 weeks with BP readings. Assessment & Plan (01/14/2023 12:18 PM EDT): Not quite at goal, probably related to pain. Overall seems to be well controlled. no change in medications FU in 3 months Counseled re low salt diet/increase moderate physical activity. Check home BP BIW and prn CP/KRISHNA/HATHAWAY Non smoking patient. Assessment & Plan (10/16/2022 1:17 PM EST): Controlled. Compliant w/meds Continue lisinopril/ 20mg Counseled re low salt diet/increase moderate physical activity. Check home BP BIW and prn CP/KRISHNA/HATHAWAY Non smoking patient. FU in 3-4mo COVID-19 09/14/2022 Gastroesophageal reflux disease 09/14/2022 Migraine without aura, not refractory 09/14/2022 Tenosynovitis 09/14/2022 Vitamin D deficiency 09/14/2022 Assessment & Plan (01/02/2024 9:25 AM EDT): Resolved I recommended to continue outdoor exercise and sun expose for at least 30 minutes No need for additional need for Vit D supplementation Assessment & Plan (10/29/2023 8:22 PM EST): Check vit D with next set of labs. Assessment & Plan (01/14/2023 12:19 PM EDT): Started vit d supplemtation for 3 months Counseled regarding outdoor exercises for at least 15 minutes without sunscreen Carpal tunnel syndrome 12/30/2018 Infectious diarrheal disease 07/22/2018 Anxiety 04/21/2018 B12 deficiency 04/21/2018 Assessment & Plan (01/02/2024 9:26 AM EDT): B12 is at goal, no need to take any supplementation anymore Pt will be changed to complex tablets for migraines as it has worked in the past Assessment & Plan (10/29/2023 8:19 PM EST): Continue PO supplementation FU levels in 3-4m, prior to next appt Assessment & Plan (06/19/2023 4:18 PM EDT): Last levels were normal, towards the low side. Continue PO supplementation and will check levels in 6m Assessment & Plan (01/14/2023 12:17 PM EDT): Levels are wnl, can continue PO supplementation Recheck B12 levels next year Assessment & Plan (10/16/2022 1:18 PM EST): On PO supplementation Check b12 levels Flexural eczema 04/21/2018 Inflammatory disorder of upper respiratory tract 03/20/2018 Epigastric pain 12/24/2017 Headache disorder 12/24/2017 Assessment & Plan (05/21/2023 9:49 AM EDT): It could be triggered by uncontrolled HTN but could also be her migraines Start verapiamil 100mg qhs and continue amitriptyline Use imitrex PRN Verruca vulgaris 10/24/2016 Asthma 07/15/2012 Assessment & Plan (09/06/2024 12:36 PM EST): Doing well, continue albuterol prn only. Start Fluticasone as asmanex isn't covered by insurance. Declined Influenza or covid IZ today. Assessment & Plan (10/16/2022 1:17 PM EST): Use albuterol prn chest tightness/SOB/persistent cough. Reconsult prn if sxs d not resolve within 2d of rx Declined covid or influenza IZ Obesity 10/21/2011 Assessment & Plan (09/06/2024 12:37 PM EST): Discussed re weight reduction options including exercise, life style modifications, diet and meds, moreno garlandt want to use any medications at this time. Recommended to decrease soda and sugary beverage consumption, increase protein intake with meals (at least 1 portion of protein with each meal) to assist with satiety, increase dietary fiber Recommended at least 150 min/week of moderate intensity exercise. She will restart going to the gym once her daughter gets better from URI. Assessment & Plan (10/29/2023 8:22 PM EST): She's doing great since she started strict life style modifications, exercise, life coaching, she's lost 60 Lb in the past 6m (April).. Discussed re lower calorie intake, increase dietary fiber, continue above changes Assessment & Plan (05/21/2023 9:50 AM EDT): Pt has been losing some weight this year. Discussed re weight reduction options including exercise, life style modifications, diet, referral to range management specialist. Discussed re lower calorie intake, increase dietary fiber FU next visit Contact dermatitis 05/15/2011 Allergic rhinitis 04/09/2010 Assessment & Plan (10/16/2022 1:19 PM EST): Use flonase prn + NS Reconsult prn worsening of sxs/fever. Resolved Problems Problem Noted Date Diagnosed Date Resolved Date Recurrent major depression i n partial remission 09/14/2022 01/19/2025 Assessment & Plan (09/06/2024 12:38 PM EST): She's doing well on Effexor and Elavil at bedtime. I gave her information to fu with our team for a BE, ro ADHD Avoid recreational substances FU in Assessment & Plan (05/05/2024 9:29 AM EDT): - pt seems to be doing well on Effexor and Amitriptyline however seems to have more issues with anxiety and concentration - will refer to for BE, r/o anxiety, ADHD? - advised to avoid using recreational substances like THC - she feels safe at home and is able to reach out for safety Assessment & Plan (01/02/2024 9:25 AM EDT): Doing better on venlafaxine XR 75mg, continue same dose. Continue FU with psychotherapist She feels safe at home and able to reach out for safety Assessment & Plan (12/02/2023 9:17 AM EST): She will continue therapist and exercise. She feels safe at home and is able to contract for safety. D/w her re meds, will increase venlafaxine XR 75mg/d and fu TV in 3-4w. Assessment & Plan (10/29/2023 8:24 PM EST): She will continue therapist and exercise. She feels safe at home and is able to contract for safety. D/w her re meds, will start venlafaxine XR 37.5mg/d and fu TV in 4-5w. Obesity (BMI 35.0-39.9 without comorbidity) 11/09/2015 10/29/2023 Assessment & Plan (06/19/2023 4:18 PM EDT): Discussed re weight reduction options including exercise, life style modifications, diet, She will continue with current plan Discussed re lower calorie intake, increase dietary fiber Encounters * This document contains information received from the source organization and may not represent a complete record from that organization. Date Type Department Care Team Description 07/15/2025 Telephone [facility] [address] [place] [phone] Joy Gonzalez MD oct recall 07/01/2025 9:20 AM EDT Office Visit [facility] [address] [place] [address] Kiran Guillen MD Upper back pain on right side (Primary Dx) 07/01/2025 Travel 06/20/2025 Refill [facility] [address] [place] [address] Jenifer Hernandez, CORKY from Last 3 Months Immunizations Immunization Administration Dates Next Due DTaP 10/10/1997, 5,1993,08/10,1993 HPV, Quadrivalent 09/07/2008,07/01/2008,12/08/19 08 Hep B, Adolescent or Pediatric 1993,1992 Hib (HbOC) 08/13/1995, 3,1993,04/03 IPV 10/10/1997, 5,1993,04/03 Influenza injectable quadriv alent IIV4 with preservative 11/09/2015 Influenza injectable quadriv alent preservative free 09/14/2020 Influenza, IIV3, injectable 06/12/2011 MMR 10/10/1997,08/13/1995 Meningococcal MPSV4 07/01/2008 Pfizer Covid-19 Vaccine 12+ 12/08/2020, 1 TD (adult), 2 Lf tetanus tox oid, preservative free, adsorbed 04/03/2005 Tdap 06/12/2011 Social History Tobacco Use Types Packs/Day Years Used Date Smoking Tobacco: Never Passive Smoke Exposure: Never Smokeless Tobacco: Never Tobacco Cessation:Counseling Given: Not Answered Alcohol Use Standard Drinks/Week Comments Not Currently 0 (1 standard drink = 0.6 oz pur e alcohol) ocaccionally Alcohol Answer Date Recorded Frequency of Alcohol Consumption Not on file 01/02/2024 Average Number of Drinks Not on file 024 Frequency of Binge Drinking Not on file 12/12 Score 0 01/02/2024 Depression Answer Date Recorded Patient Health Questionnaire-9 Score 10 01/19/2025 Patient Health Questionnaire-9 Score 10 01/19/2025 Last PHQ-9: Questionnaire Data Not on file 0 01/19/2025 Housing Stability Answer Date Recorded What is your housing situation today? I have ruben juan jose 10/29/[address] you li [...] Answer Date Recorded Patient Health Questionnaire-2 Score 4 01/19/2025 Comments No Sex and Gender Information Value Date Recorded Sex Assigned at Female 08/12/2022 10:19 AM EDT Legal Sex Female 10:19 AM EDT Gender Identity Female 08/12/2022 10:19 AM EDT Sexual Orientation Choose not to disclose 2022 2:48 PM EDT Sexual Orientation Straight 01/13/2023 2: 48 PM EDT Last Filed Vital Signs Vital Sign Reading Time Taken Comments Blood Pressure 144/96 07/01/2025 8:59 AM EDT Pulse 75 07/01/2025 8:59 AM EDT Temperature 36.8 C (98.3 F) 07/01/2025 8:59 AM EDT Respiratory Rate 18 07/01/2025 8:59 AM EDT Oxygen Saturation 99% 07/01/2025 8:59 AM EDT Inhaled Oxygen Concentration - - Weight 120 kg (264 lb) 07/01/2025 8:59 AM EDT Height 162.6 cm (5' 4 ) 09/06/2024 9:48 AM EST Body Mass Index 45.32 09/06/2024 9:48 AM EST Plan of Treatment Upcoming Encounters Date Type Department Care Team (Late st Contact Info) Description 09/26/2025 9:45 AM EST Office Visit [facility] [address] [place] [address] Joy Gonzalez MD [address] [place] [address] Health Maintenance Due Date Last Done Comments HIV Screening 1993 Disability Screening 1993 Alcohol/Substance Use Screening 2005 Family Planning (PISQ) 01/10/2008 Hepatitis C Screening 2011 Pneumococcal Vaccine: Pediatrics (0 to 5 Years) and At-Risk Patients (6 to 49) Years (1 of 2 - PCV) 01/10/2012 DTaP/Tdap/Td Vaccines (7 - Td or Tdap) 06/12/2021 06/12/2011, 04/03/2005, 10/10/1997, Additional history exists SDOH Screening 10/29/2024 10/29/2023 Cervical Cancer Screening 04/10/2025 Pap Smear 04/10/2025 04/10/2022, 04/10/2022 COVID-19 Vaccine (3 - season) 2025 12/08/2020, 11/05/2020 Influenza Vaccine (#1) 2025 , 11/09/2015, 06/12/2011 Depression Monitoring 07/21/2025 01/19/2025, 025 Tobacco Screening 07/01/2026 07/01/2025 HPV/Cotest 04/10/2027 04/10/2022 Lipid Panel 12/28/2028 12/29/2023, 0 01/2023, 08/31/2021, Additional history exists Zoster Vaccines (1 of 2) 2043 RSV Patients and Patients Aged 60 years or older (1 - 1-dose 75+ series) 01/10/2068 Hepatitis B Vaccines Completed 1993, 1993, 1993 HIB Vaccines Completed 08/13/1995, 09/14, 1993, Additional history exists IPV Vaccines Completed 10/10/1997, 09/13, 08/13/1995, Additional history exists Meningococcal Vaccine Aged Out 07/01/2008 No levon karely eligible based on patient's age to complete this topic HPV Vaccines Completed 09/07/2008, 06/13, 12/08/2007 Hepatitis A Vaccines Aged Out No long er eligible based on patient's age to complete this topic Meningococcal B Vaccine Aged Out No l onger eligible based on patient's age to complete this topic RSV under 20 months Aged Out No longe r eligible based on patient's age to complete this topic Rotavirus Vaccines Aged Out No longer eligible based on patient's age to complete this topic Procedures Procedure Name Priority Date/Time Associated Diagnosis Comments LIPID PANEL WITH REFLEX TO DIRECT LDL Routine 12/29/2023 8:54 AM EDT Class 3 severe obesity due to excess calories with serious comorbidity and body mass index (BMI) of 50.0 to 59.9 in adult (CMS/HCC) THINPREP IMAGING PAP AND HPV MRNA E6/E7 WITH REFLEX TO HPV 16,18/45 Routine 04/10/2022 9:57 AM EDT PAP SMEAR Routine 04/10/2022 12:00 AM EDT from Last 3 Months or Most Recently Relevant to Health Maintenance Results * Lipid Panel with Reflex to Direct LDL (12/29/2023 8:54 AM EDT) Triglycerides 59 <150 mg/dL [facility] Comment:Desirable Triglyceri de: less than 150 mg/dLBorderline High Triglyceride 150-199 mg/dLHigh Triglyceride: 200-499 mg/dLVery High Triglyceride: greater than or equal to 5OO mg/dL Cholesterol 150 <200 mg/dL [facility] Comment:Desirable Cholestero l: less than 200 mg/dLBorderline High Cholesterol: 200-239 mg/dLHigh Cholesterol: greater than 239 mg/dL LDL Cholesterol Calculated 97 <100 mg/dL [facility] Comment:Desirable LDL: less than 100 mg/dLNear Optimal/Above Optimal LDL: 110- 129 mg/dLBorderline High LDL: 130-159 mg/dLHigh LDL: 160-189 mg/dLVery High LDL: greater than or equal to 190 mg/dL HDL Cholesterol 42 >40 mg/dL [facility] Comment:Desirable HDL: great er than 40 mg/dL Note: This HDL assay may give artificially low results in patients with liver disease. Blood 12/29/2023 8:54 AM EDT 12/29/2023 11:07 AM EDT us Joy Gonzalez MD LAB BLOOD ORDERABLES Fin al Result [facility] [address] [place] [phone] * THINPREP TIS PAP AND HPV mRNA E6/E7 WITH REFLEX TO HPV 16,18/45 (04/10/2022 9:57 AM EDT) Clinical Information: None given [facility] COMMENT SEE COMMENT [facility] Comment: EXPLANATORY NOTE: The Pap is a screening test for cervical cancer. It is not a diagnostic test and is subject to false negative and false positive results. It is most reliable when a satisfactory sample, regularly obtained, is submitted with relevant clinical findings and history, and when the Pap result is evaluated along with historic and current clinical information. COMMENT: This Pap test has been evaluated with computer assisted technology. [facility] Cytotechnologis t: SEE COMMENT [facility] Comment: RK, CT(ASCP) CT screening location: [place] [address] HPV nRNA E6/E7 Not Detected Not Detected [facility] [employer] Comment: Methodology: Bellhop Captain-Mediated Amplification This assay detects E6/E7 viral messenger RNA (mRNA) from 14 high-risk HPV types (16,18,31,33,35,39,45,51,52,56,58,59,66,68). Cervical sources are required for HPV testing. If a vaginal source from a patient who has had a total hysterectomy with removal of cervix was submitted, please contact the testing laboratory for alternative testing options. For additional information, please refer to http://education.[employer]found[employer]/faq/KSV656c2 (This link if provided for information/ educational purposes only.) Interpretation/ Result: Negative for intraepithelial lesion or malignancy. [facility] LMP: NONE [facility]IV[facility] Prev. BX: NONE [facility]IVEN [facility] Prev. PAP: NONE [facility]IVEN [facility] SOURCE: None given [facility] Statement Of Adequacy: SEE COMMENT [facility] Comment: Satisfactory for evaluation. Endocervical/transformation zone component absent. Age and/or menstrual status not provided 04/10/2022 9:57 AM EDT Joy Gonzalez MD LAB PATHOLOGY ORDERABLES Final Result [facility] [address] * Pap Smear (04/10/2022 12:00 AM EDT) Swab Joy Gonzalez MD LAB CYTOLOGY ORDERABLES Final Result [facility] [address] [facility], [facility], [place] [address] from Last 3 Months or Most Recently Relevant to Health Maintenance Insurance [employer] Care Teams Marketing Strategy Manager Relationship Specialty Start Date End Date Joy Gonzalez MD [address] [place] [phone] PCP - General Family Medicine 07/26/16
== END 2025-08-25 09:26 | disposition home or self-care (01) ==
LOC: HO.HSM 09:12
PROVIDERS: PCP Internal Medicine; Referring Provider Emergency Medicine; Visit Provider Registered Nurse
DX: G43.909 Migraine, unspecified, not intractable, without status migrainosus (principal)
CPT/HCPCS: 99214

== ENCOUNTER 2025-10-03 08:36 | Outpatient (REF) | payer OTHER, SELFPAY ==
--- OUTSIDE RECORDS SUMMARY | 2025-10-03 08:53 | XMS_ITS | Encounter Summary ---
Author Organization [facility] Address [address] [place] [address] Phone Care Team Providers Care Delivery Professional Name Role Phone Vandana Ying MD Primary Care Provider [phone] Encounter Details Date Type Department Care Team (Late st Contact Info) Description 05/29/2017 Conversion Encounter [facility] [place] [address] [place] [address] Social History Tobacco Use Types Packs/Day Years [...] on filedocumented in this encounter Care Teams Delivery Professional Relationship Specialty Start Date End Date Vandana Ying MD [address] [place] [address] PCP - General 05/23/17 04/09/23 documented as of this encounter
--- OUTSIDE RECORDS SUMMARY | 2025-10-03 08:53 | XMS_ITS | Clinical Summary ---
Author Organization [facility] Address [address] [place] [phone] Phone Care Team Providers Care Finished Yarn Examiner Name Role Phone Unavailable Primary Care Provider [...]
--- OUTSIDE RECORDS SUMMARY | 2025-10-03 08:53 | XMS_ITS | Encounter Summary ---
Author Organization [employer] Address [address] [facility] [address] [place] [address] Care Team Providers Care Psychiatric Aides Teacher Name Role Phone Joy Gonzalez MD Primary Care Provider + Reason for Visit * Reason Comments Med Change Request Encounter Details Date Type Department Care Team ([facility] Contact Info) Description 11/21/[address] [facility] [address] [place], [place] [phone] Joy Gonzalez MD [address] [place], [place] [phone] Recurrent major depression in partial remission (CMS/HCC) [...] documented as of this encounter Care Teams Psychiatric Aides Teacher Relationship Specialty Start Date End Date Joy Gonzalez MD [address] [place] [phone] PCP - General Family Medicine 07/26/16 documented as of this encounter
--- OUTSIDE RECORDS SUMMARY | 2025-10-03 08:53 | XMS_ITS | Encounter Summary ---
Author Organization [employer] Address [address] [facility] [address] [place] [address] Care Team Providers Care Patent Attorney Name Role Phone Joy Gonzalez MD Primary Care Provider + Encounter Details Date Type Department Care Team (Late st Contact Info) Description 01/20/2023 Orders Only [facility] [address] [place], [place] [phone] Joy Gonzalez MD [address] [place] [address] Social History Tobacco Use Types Packs/Day Years [...] on filedocumented in this encounter Care Teams Patent Attorney Relationship Specialty Start Date End Date Joy Gonzalez MD [address] [place] [address] PCP - General Family Medicine 07/26/16 documented as of this encounter
--- OUTSIDE RECORDS SUMMARY | 2025-10-03 08:53 | XMS_ITS | Encounter Summary ---
Author Organization [email or web address] Address [address] [facility] [address] [place] [address] Care Team Providers Care Proposal Engineer Name Role Phone Joy Gonzalez MD Primary Care Provider + Reason for Visit * Reason Comments Med Refill Encounter Details Date Type Department Care Team ([facility] st Contact Info) Description 12/23/2022 Refill [facility] [address] [place], [place] [phone] Joy Gonzalez MD [address] [place], [place] [phone] Vitamin D deficiency Social History Tobacco Use [...] deficiency documented in this encounter Care Teams Proposal Engineer Relationship Specialty Start Date End Date Joy Gonzalez MD [address] [place], [place] [phone] PCP - General Family Medicine 07/26/16 documented as of this encounter
--- OUTSIDE RECORDS SUMMARY | 2025-10-03 08:53 | XMS_ITS | Encounter Summary ---
Author Organization [employer] Address [address] [facility] [address] [place] [address] Care Team Providers Care Swahili Teacher Name Role Phone Joy Gonzalez MD Primary Care Provider + Reason for Visit * Reason Comments Med Refill Encounter Details Date Type Department Care Team ([facility] st Contact Info) Description 06/17/2023 Refill [facility] [address] [place] [address] Joy Gonzalez MD [address] [place] [address] Acute bilateral low back pain with right-sided [...] sciatica documented in this encounter Care Teams Swahili Teacher Relationship Specialty Start Date End Date Joy Gonzalez MD [address] [place] [phone] PCP - General Family Medicine 07/26/16 documented as of this encounter
--- OUTSIDE RECORDS SUMMARY | 2025-10-03 08:53 | XMS_ITS | Encounter Summary ---
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
--- OUTSIDE RECORDS SUMMARY | 2025-10-03 08:53 | XMS_ITS | Encounter Summary ---
Author Organization [employer] Address [address] [facility] [address]t [place] [address] Care Team Providers Care Painter Barrel Name Role Phone Joy Gonzalez MD Primary Care Provider + Reason for Visit * Reason Comments Med Change Request Encounter Details Date Type Department Care Team ([facility] Contact Info) Description 07/26/2023 Refill [facility] [address] [place] [phone] Joy Gonzalez MD [address] [place] [phone] Acute bilateral low back pain with right-sided [...] sciatica documented in this encounter Care Teams Painter Barrel Relationship Specialty Start Date End Date Joy Gonzalez MD [address] [place] [phone] PCP - General Family Medicine 07/26/16 documented as of this encounter
--- OUTSIDE RECORDS SUMMARY | 2025-10-03 08:54 | XMS_ITS | Clinical Summary ---
Author Organization [employer] Address [address] [facility] [address] [place] [address] Care Team Providers Care Internet Marketing Coordinator Name Role Phone Joy Gonzalez MD Primary Care Provider + Allergies Active Allergy Reactions Criticality Noted Date Comments Cat Dander 09/14/2022 Medications * This document contains information received from the source organization and may not represent a complete record from that organization. albuterol (ProAir HFA) 108 (90 Base) MCG/ACT inhaler Inhale 2 puffs every 4 (four) hours if needed. 08/30/20 21 Active omeprazole (PriLOSEC) [address] capsule Take 1 capsule by mouth at bed time. 10/18/19 22 Active fluticasone (Flonase) 50 MCG/ACT nasal sprayIndicatio ns:Allergic rhinitis, unspecified seasonality, unspecified trigger Administer 1 spray into each nostril in the morning. 16 g 1 10/16/19 23 Active cyanocobalamin (Vitamin B-12) 1000 MCG tablet TAKE 1 TABLET BY MOUTH EVERY DAY 90 tablet 3 01/18/20 23 Active amitriptyline (Elavil) 10 MG tabletIndicati ons:Migraine Take 25 mg by mouth at bedtime. 12/24/19 23 Active SUMAtriptan (Imitrex) 50 MG tablet 06/17/20 23 Active tiZANidine (Zanaflex) 4 MG tabletIndicati ons:Acute bilateral low back pain with right-sided sciatica TAKE 1 TABLET BY MOUTH TWICE DAILY NEEDED FOR MUSCLE SPASMS 60 tablet 07/11/20 23 Active betamethasone valerate (Valisone) 0.1 % creamIndicatio ns:Acute solar dermatitis APPLY TOPICALLY IF NEEDED IN THE MORNING AND AT BEDTIME (DRYNESS). 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 DO NOT CRUSH OR CHEW. 30 capsule 11 11/30/19 25 Active verapamil (Calan) 40 MG tablet Take 1 tablet by mouth 2 times daily. 12/31/19 25 Active ibuprofen 400 MG tabletIndicati ons:Acute bilateral low back pain with right-sided sciatica TAKE 1 TABLET (400 MG) BY MOUTH EVERY 6 (SIX) HOURS. 120 tablet 11 02/18/20 25 Active lisinopril 20 MG tablet TAKE 1 TABLET BY MOUTH EVERY DAY 90 tablet 09/13/20 25 Active Diclofenac Sodium 1 % gelIndications :Achilles tendinitis of both lower extremities Apply 1 Application topically Once per day. 50 g 1 09/26/20 25 Active fluticasone furoate (Arnuity Ellipta) 200 MCG/ACT inhaler Inhale 1 puff Once per day. Rinse mouth with water after use to reduce aftertaste and incidence of candidiasis. Do not swallow. 1 each 09/26/20 25 026 Active fluticasone furoate (Arnuity Ellipta) 200 MCG/ACT inhaler Inhale 1 puff Once per day. Rinse mouth with water after use to reduce aftertaste and incidence of candidiasis. Do not swallow. 1 each 09/06/20 24 025 Discontinued(R eorder (will not trigger notification to Pharmacy)) lisinopril 20 MG tablet TAKE 1 TABLET BY MOUTH EVERY DAY 90 tablet 06/20/20 25 025 Discontinued Active Problems Problem Noted Date Diagnosed Date [...] exercise, life style modifications, diet, referral to student education specialist. Discussed re lower calorie intake, increase [...] organization. Date Type Department Care Team Description 09/26/2025 9:45 AM EST Office Visit [facility] [address] [place] [phone] Joy Gonzalez MD Moderate major depression (CMS/HCC) ([facility]) (Primary Dx); Anxiety; Achilles tendinitis of both lower extremities; Dietary counseling; Exercise counseling; Moderate persistent asthma without complication; Class 3 severe obesity due to excess calories without serious comorbidity with body mass index (BMI) of 50.0 to 59.9 in adult ([facility]) 09/26/2025 Travel 09/23/2025 Telephone [facility] [address] [place] [address] [phone] Joy Gonzalez MD Chart Prep 09/15/2025 Patient Outreach [address] [phone] Joy Gonzalez MD Pre-visit Planning (SDOH screening negative and tobacco screening positive) 09/12/[address] [phone] Joy Gonzalez MD 07/15/[address] [phone] Joy Gonzalez MD oct recall from Last 3 Months Immunizations Immunization Administration [...] e alcohol) ocaccionally Alcohol Answer Date Recorded How often do you have a drink containing alcohol ? 0 09/26/2025 How many drinks containing a lcohol do you have on a typical day when you are drinking? 0 09/26/2025 How often do you have six or more drinks on one occasion? 0 09/26/2025 Depression Answer Date Recorded Patient Health Questionnaire-9 Score 10 01/19/2025 Patient Health Questionnaire-9 Score 10 01/19/2025 Last PHQ-9: Questionnaire Data Not on file 0 01/19/2025 Housing Stability Answer Date Recorded What is your housing situation today? I have ruben ingram 09/15/[address] you li ve. Do you have problems with any of the following? None of the above 09/15/2025 Food Insecurity Answer Date Recorded Within the past 12 months, y ou worried that your food would run out before you got money to buy more: Never True 09/15/2025 Within the past 12 months,th e food you bought just didn't last and you didn't have enough money to get more: Never True 01/2025 Transportation Answer Date Recorded In the past 12 months, has l ack of transportation kept you from medical appts, meetings, work or from getting things needed for daily living? No 09/15/2025 Utilities Answer Date Recorded In the past 12 months, has t he electric, gas, oil or water company threatened to shut off services in your home? No 09/15/2025 Depression Answer Date Recorded Patient Health Questionnaire-2 Score 4 01/19/2025 Internet Access Answer Date Recorded Internet Access Q1 Yes 09/15/2025 Internet Access Q2 Not on file 09/15/2025 Comments No Sex and Gender Information Value Date Recorded Sex Assigned at Female 08/12/2022 10:19 AM EDT Legal Sex Female 10:19 AM EDT Gender Identity Female 08/12/2022 10:19 AM EDT Sexual Orientation Choose not to disclose 2022 2:48 PM EDT Sexual Orientation Straight 01/13/2023 2: 48 PM EDT Last Filed Vital Signs Vital Sign Reading Time Taken Comments Blood Pressure 136/80 09/26/2025 9:58 AM EST Pulse 76 09/26/2025 9:58 AM EST Temperature 36.4 C (97.6 F) 09/26/2025 9:58 AM EST Respiratory Rate 18 09/26/2025 9:58 AM EST Oxygen Saturation 99% 07/01/2025 8:59 AM EDT Inhaled Oxygen Concentration - - Weight 142 kg (313 lb 9.6 oz) 09/26/2025 9:58 AM EST Height 164.5 cm (5' 4.75 ) 09/26/2025 9:58 AM ES T Body Mass Index 52.59 09/26/2025 9:58 AM EST Plan of Treatment Health Maintenance Due Date Last Done Comments HIV Screening 1993 Disability Screening 1993 Family Planning (PISQ) 01/10/2008 Hepatitis C Screening 2011 Pneumococcal Vaccine: Pediatrics (0 to 5 Years) and At-Risk Patients (6 to 49) Years (1 of 2 - PCV) 01/10/2012 DTaP/Tdap/Td Vaccines (7 - Td or Tdap) 06/12/2021 06/12/2011, 04/03/2005, 10/10/1997, Additional history exists Cervical Cancer Screening 04/10/2025 Pap Smear 04/10/2025 04/10/2022, 04/10/2022 COVID-19 Vaccine ( season) 2025 12/08/2020, 11/05/2020 Influenza Vaccine (#1) 2025 , 11/09/2015, 06/12/2011 Depression Monitoring 07/21/2025 01/19/2025, 025 SDOH Screening 09/15/2026 09/15/2025 Alcohol/Substance Use Screening 09/26/2026 09/26/2025 Tobacco Screening 09/26/2026 09/26/2025 HPV/Cotest 04/10/2027 04/10/2022 Lipid Panel 12/28/2028 12/29/2023, 01/2023, 08/31/2021, Additional history exists Zoster Vaccines [...] (BMI) of 50.0 to 59.9 in adult ([facility]) THINPREP IMAGING PAP AND HPV MRNA E6/E7 WITH REFLEX TO HPV 16,18/45 Routine 04/10/2022 9:57 AM EDT PAP SMEAR Routine 04/10/2022 12:00 AM EDT from Last 3 Months or Most Recently Relevant to Health Maintenance Results * Lipid Panel with Reflex to Direct LDL (12/29/2023 8:54 AM EDT) Triglycerides 59 <150 mg/dL [facility] Comment:Desirable Triglyceri de: less than 150 mg/dLBorderline High Triglyceride 150-199 mg/dLHigh Triglyceride: 200-499 mg/dLVery High Triglyceride: greater than or equal to 5OO mg/dL Cholesterol 150 <200 mg/dL [facility] Comment:Desirable Cholestero l: less than 200 mg/dLBorderline High Cholesterol: 200-239 mg/dLHigh Cholesterol: greater than 239 mg/dL LDL Cholesterol Calculated 97 <100 mg/dL [facility] Comment:Desirable LDL: less than 100 mg/dLNear Optimal/Above Optimal LDL: 110- 129 mg/dLBorderline High LDL: 130-159 mg/dLHigh LDL: 160-189 mg/dLVery High LDL: greater than or equal to 190 mg/dL HDL Cholesterol 42 >40 mg/dL [facility] Comment:Desirable HDL: great er than 40 mg/dL Note: This HDL assay may give artificially low results in patients with liver disease. Blood 12/29/2023 8:54 AM EDT 12/29/2023 11:07 AM EDT us Joy Gonzalez MD LAB BLOOD ORDERABLES Fin al Result [facility] [address] [place] [phone] * THINPREP TIS PAP AND HPV mRNA E6/E7 WITH REFLEX TO HPV 16,18/45 (04/10/2022 9:57 AM EDT) Clinical Information: None given [facility] COMMENT SEE COMMENT [facility] [...] along with historic and current clinical information. Comment: This Pap test has been evaluated with computer assisted technology. [facility] Cytotechnologis t: SEE COMMENT [facility] Comment: RK, CT(ASCP) CT screening location: [place] [id number] HPV nRNA E6/E7 Not Detected Not Detected [facility] Comment: Methodology: Animal Control Licensing Worker-Mediated Amplification This assay detects E6/E7 viral messenger RNA (mRNA) from 14 high-risk HPV types (16,18,31,33,35,39,45,51,52,56,58,59,66,68). Cervical sources are required for HPV testing. If a vaginal source from a patient who has had a total hysterectomy with removal of cervix was submitted, please contact the testing laboratory for alternative testing options. For additional information, please refer to http://education.[employer]anta/faq/QVV185t5 (This link if provided for information/ educational purposes only.) Interpretation/ Result: Negative for intraepithelial lesion or malignancy. [facility] LMP: NONE [facility]IV[facility] Prev. BX: NONE [facility]IV[facility] Prev. PAP: NONE [facility]IV[facility] SOURCE: None given [facility] Statement Of Adequacy: SEE COMMENT [facility] Comment: Satisfactory for evaluation. Endocervical/transformation zone component absent. Age and/or menstrual status not provided 04/10/2022 9:57 AM EDT Joy Gonzalez MD LAB PATHOLOGY ORDERABLES Final Result [facility] [address] * Pap Smear (04/10/2022 12:00 AM EDT) Swab Joy Gonzalez MD LAB CYTOLOGY ORDERABLES Final Result Performing Organization Address City/[facility]/ZIP Co de Phone Number [address], [place] [address] from Last 3 Months or Most Recently Relevant to Health Maintenance [place] [address] [place] [address] [employer] Care Teams Internet Marketing Coordinator Relationship Specialty Start Date End Date Joy Gonzalez MD [address] [place] [address] PCP - General Family Medicine 07/26/16
[2025-10-03 11:27] LABS: Anion Gap 11 (12-20); Blood Urea Nitrogen 13 mg/dL (9-16); Calcium 9.1 mg/dL (8.4-10.2); Carbon Dioxide 26 mmol/L (22-29); Chloride 108 mmol/L (96-108); Cholesterol 169 mg/dL (<200); Estimated Glomerular Filt Rate > 60; HDL Cholesterol 46 mg/dL (>40); Potassium 4.1 mmol/L (3.3-5.1); Sodium 141 mmol/L (135-145); Triglycerides 97 mg/dL (<150)
== END 2025-10-03 08:37 | disposition home or self-care (01) ==
LOC: HO.HHCL 08:36
PROVIDERS: PCP Internal Medicine; Visit Provider Internal Medicine
DX: Z13.1 Encounter for screening for diabetes mellitus (principal); E66.813 Obesity, class 3; Z68.43 Body mass index [BMI] 50.0-59.9, adult
CPT/HCPCS: 36415; 80048; 80061; 83036